=== PATIENT | female | born 1990 | race Caucasian/White ===

== ENCOUNTER 2022-03-21 10:19 | Emergency (ER) | payer SELFPAY ==
[~2022-03-21] VITALS: Ht 177.8 cm; Wt 97.0 kg
[~2022-03-21 10:19] MED LIST: LAMO100T2 PO; LAMO25TA62 PO; ONDA4TAB59 PO; ZONI50CA15 PO
--- NOTE | 2022-03-21 17:14 | NUR ---
WHEN CALLING PATIENT BACK TO AN ER ROOM, PT STATED SHE "WAS WAITING FOR FOOD TO BE DELIVERED". ONCE IN ROOM, PATIENT REFUSED TO GET ON MONITOR OR GOWN PER "LET ME FINISH EATING". RN MADE AWARE.
[2022-03-21 18:43] LABS: HEMOGLOBIN 14.4 g/dl (12.0-16.0); RED BLOOD COUNT 4.51 X10'6 (4.20-5.60); WHITE BLOOD COUNT 7.6 X10'3 (4.5-11.0)
[2022-03-21 18:45] LABS: BASOPHILS % (AUTO) 0.3 % (0-1); EOSINOPHILS # (AUTO) 0.2 X10'3 (0-0.9); EOSINOPHILS % (AUTO) 2.1 % (0-6); HEMATOCRIT 42.1 % (35.0-45.0); LYMPHOCYTES # (AUTO) 2.7 X10'3 (1.1-4.8); LYMPHOCYTES % (AUTO) 35.7 % (21-51); MEAN CORPUSCULAR HEMOGLOBIN 31.9 PG (27.0-31.0); MEAN CORPUSCULAR HGB CONC 34.2 g/dL (33.0-36.5); MEAN CORPUSCULAR VOLUME 93.3 FL (78-98); MONOCYTES # (AUTO) 0.6 X10'3 (0-0.9); MONOCYTES % (AUTO) 7.6 % (2-12); NEUTROPHILS # (AUTO) 4.1 X10'3 (1.8-7.7); NEUTROPHILS % (AUTO) 54.3 % (42-75); PLATELET COUNT 235 X10'3 (140-440)
[2022-03-21 19:03] LABS: ALANINE AMINOTRANSFERASE 19 U/L (12-78); ALBUMIN 3.3 G/DL (3.4-5.0); ALBUMIN/GLOBULIN RATIO 0.9 (1.1-1.5); ALKALINE PHOSPHATASE 50 IU/L (46-116); ANION GAP 11 (8-16); ASPARTATE AMINO TRANSFERASE 16 U/L (10-37); BILIRUBIN,TOTAL 0.5 MG/DL (0.1-1.0); BLOOD UREA NITROGEN 11 MG/DL (7-18); BUN/CREATININE RATIO 13.9 (6.6-38.0); CALCIUM 9.1 MG/DL (8.5-10.1); CHLORIDE 103 MMOL/L (99-107); CREATININE 0.79 MG/DL (0.40-0.90); GLUCOSE 91 MG/DL (70-104); POTASSIUM 3.4 MMOL/L (3.5-5.1); SODIUM 141 MMOL/L (135-145); TOTAL CARBON DIOXIDE 26.8 MMOL/L (24-32); TOTAL PROTEIN 7.1 G/DL (6.4-8.2); eGFR 85 ML/MIN
[2022-03-21] MEDS ORDERED: POTASSIUM BICARBONATE/CIT AC 10 MEQ TABLET.EFF PO STA (19:10)
[2022-03-21 19:29] LABS: GLUCOSE, URINE NEGATIVE (Neg); KETONES,URINE 15 mg/dl (Neg); LEUKOCYTE ESTERASE ,URINE NEGATIVE (Neg); NITRITES, URINE NEGATIVE (Neg); OCCULT BLOOD,URINE NEGATIVE (Neg); PROTEIN,URINE NEGATIVE (Neg); UROBILINOGEN,URINE 0.2 E.U/dL (0.2-1.0)
[2022-03-21 19:32] LABS: CLARITY,URINE CLEAR (Clear); COLOR,URINE DARK YELLOW (Yellow); UA COLLECTION TYPE CLN CATCH MIDSTREAM
[2022-03-21 19:58] LABS: URINE AMPHETAMINE SCREEN NEGATIVE (Neg); URINE BARBITUATE SCREEN NEGATIVE (Neg); URINE BENZODIAZEPINES SCREEN NEGATIVE (Neg); URINE CANNABINOID SCREEN POSITIVE (Neg); URINE COCAINE SCREEN NEGATIVE (Neg); URINE METHADONE SCREEN NEGATIVE (Neg); URINE OPIATE SCREEN NEGATIVE (Neg); URINE PHENCYCLIDINE SCREEN NEGATIVE (Neg)
--- NOTE | 2022-03-21 20:44 | NUR ---
pt postictal. placed on 2l nc. pt responds to vigerous sternal rub, pt not responsive to time place event. informed, awaiting orders
[2022-03-21 20:57] LABS: VALPROATE 99 UG/ML (50-100)
[2022-03-21 22:22] VITALS: BP 128/82
[2022-03-21] MEDS ORDERED: topiramate 100mg tablet PO ONE (22:55)
[2022-03-21] MEDS ORDERED: TOPI25TA49 PO ×2 (22:58)
[2022-03-21] MEDS ORDERED: topiramate 25mg tablet PO ONE (23:00)
[2022-03-21] MEDS ORDERED: LEVE10002 PO (23:25)
[2022-03-21] MEDS ORDERED: levetiracetam 250mg tablet PO ONE (23:30)
--- NOTE | 2022-03-21 23:45 | NUR ---
po med given
== END 2022-03-21 23:46 | disposition home or self-care (01) ==
LOC: ER 10:23
DX: R56.9 Unspecified convulsions (principal); J45.909 Unspecified asthma, uncomplicated; Z90.49 Acquired absence of other specified parts of digestive tract; Z79.899 Other long term (current) drug therapy
CPT/HCPCS: 36415; 80053; 80164; 80305; 81003; 85025; 99284

== ENCOUNTER 2022-03-27 06:50 | Emergency (ER) | payer MEDICAID ==
[~2022-03-27] VITALS: Ht 177.8 cm; Wt 96.4 kg
[~2022-03-27 06:50] MED LIST changes: +LEVE10002 PO
[2022-03-27 07:02] VITALS: BP 122/76
[2022-03-27] MEDS ORDERED: mupirocin 2% ointment 22GM TP STA (10:54)
[2022-03-27] MEDS ORDERED: cephalexin 500mg capsule PO ONE (10:55)
[2022-03-27] MEDS ORDERED: LIDOcaine/epinephrine/tetracaine TOPICAL sol 3 ML syringe TOP ONE (10:55)
[2022-03-27] MEDS ORDERED: CEPH500C81 PO (11:25)
[2022-03-27] MEDS ORDERED: IBUP-1984 PO (11:54)
[2022-03-27] MEDS ORDERED: ibuprofen 200mg tablet PO ONE (11:55)
== END 2022-03-27 13:06 | disposition home or self-care (01) ==
LOC: ER 06:50
DX: S60.511A Abrasion of right hand, initial encounter (principal); L02.511 Cutaneous abscess of right hand; L03.011 Cellulitis of right finger; J45.909 Unspecified asthma, uncomplicated; M19.90 Unspecified osteoarthritis, unspecified site; Z98.890 Other specified postprocedural states; Z59.00 Homelessness unspecified; Y08.89XA Assault by other specified means, initial encounter; Y93.89 Activity, other specified; Y92.89 Other specified places as the place of occurrence of the external cause; Y99.8 Other external cause status
CPT/HCPCS: 26010; 29515; 99284; J3490; L1930; A6449

== ENCOUNTER 2022-04-07 13:30 | Emergency (ER) | payer MEDICAID ==
[~2022-04-07] VITALS: Ht 177.8 cm; Wt 90.0 kg
[2022-04-07 14:14] VITALS: BP 110/64
== END 2022-04-07 19:23 | disposition left against medical advice (07) ==
LOC: ER 13:31
DX: R56.9 Unspecified convulsions (principal); Z53.21 Procedure and treatment not carried out due to patient leaving prior to being seen by health care provider

== ENCOUNTER 2022-04-14 21:48 | Emergency (ER) | payer MEDICAID ==
[~2022-04-14] VITALS: Ht 177.8 cm; Wt 92.0 kg
[2022-04-14 22:14] VITALS: BP 116/83
[2022-04-15] MEDS: naproxen 500mg tablet PO ONE (08:22)
== END 2022-04-15 09:11 | disposition home or self-care (01) ==
LOC: ER 21:49
DX: M25.571 Pain in right ankle and joints of right foot (principal); J45.909 Unspecified asthma, uncomplicated; M19.90 Unspecified osteoarthritis, unspecified site; Z59.00 Homelessness unspecified
CPT/HCPCS: 73610; 99284; A6258; A6449

== ENCOUNTER 2022-04-28 08:11 | Emergency (ER) | payer MEDICAID ==
[~2022-04-28] VITALS: Ht 177.8 cm; Wt 94.1 kg
--- NOTE | 2022-04-28 08:14 | NUR ---
pt using restroom at this time.
[2022-04-28 08:35] VITALS: BP 145/82
[2022-04-28] MEDS ORDERED: LEVE10002 PO (09:00)
[2022-04-28] MEDS ORDERED: SULF1TAB45 PO (09:01)
[2022-04-28] MEDS ORDERED: CITA20TA28 PO (09:13)
== END 2022-04-28 09:17 | disposition home or self-care (01) ==
LOC: ER 08:11
DX: L03.211 Cellulitis of face (principal); J45.909 Unspecified asthma, uncomplicated; F15.20 Other stimulant dependence, uncomplicated; Z59.00 Homelessness unspecified; Z86.69 Personal history of other diseases of the nervous system and sense organs; Z98.890 Other specified postprocedural states
CPT/HCPCS: 99283

== ENCOUNTER 2022-04-28 11:36 | Emergency (ER) | payer MEDICAID ==
[~2022-04-28 11:36] MED LIST changes: +CITA20TA28 PO; +SULF1TAB45 PO
--- NOTE | 2022-04-28 11:48 | NUR ---
PT SITTING IN THE LOBBY ,BUT NOT COMING TO TRIAGE ROOM ,CALLED MULTIPLE TIME ,CALLED SECURITY FOR ASSISTANCE ,PT REFUSES TO GET CHECKED IN .
== END 2022-04-28 12:35 ==
LOC: ER 11:36
DX: Z00.00 Encounter for general adult medical examination without abnormal findings (principal); Z53.21 Procedure and treatment not carried out due to patient leaving prior to being seen by health care provider
CPT/HCPCS: 99283